=== PATIENT | female | born 2000 | race Caucasian/White ===

== ENCOUNTER → 2023-01-15 13:34 | Outpatient (CLI) | payer OTHER, SELFPAY ==
--- NOTE | 2023-01-15 13:36 | DI.US.S_ITS ---
PROCEDURE: US OB <= 14 WEEKS FETUS INDICATIONS: DATING AND VIABILITY OUTSIDE/PRIOR DATING DATA: Last menstrual period (LMP): 11/20/2022 LMP-based estimated date of delivery (NICK): 08/27/2023 First dating scan (date and location): 01/15/2023 Estimated date of delivery (NICK) from first dating scan: 09/03/2023 TECHNIQUE: Real-time scanning was performed of the fetus and maternal pelvic organs, with image documentation. Endovaginal scanning was also performed to better visualize the fetus and maternal ovaries. COMPARISON: None. FINDINGS: Embryo: Single intrauterine gestational sac is seen with fetus and yolk sac seen. [place]-rump length measures 0.9 cm. Estimated gestational age is 7 weeks, 0 day. Heart rate: 149 beats per minute. Small subchorionic hemorrhage adjacent to gestational sac is noted measures 0.8 x 0.7 x 0.7 cm in size. Maternal organs: Ovaries are visualized and are within normal limits. IMPRESSION: 1. Single live intrauterine gestation with fetus and yolk sac seen. heart rate is 149 beats per minute. Estimated gestational age based on current study is 7 weeks, 0 day. 2. Small subchorionic hematoma as above. Normal appearing bilateral ovaries. We strive to produce accurate, complete, and clear reports of imaging services. To assist us in improving patient care, this report was composed using standard report templates and voice recognition software. Therefore, it may contain abnormal punctuation, insertions and/or omissions. Occasional wrong-word or sound-alike substitutions may occur. Though we review the report and make efforts to correct it, we do recommend that the report be read carefully in proper context to recognize any text inaccuracies. Dictated by: Israel Haq M.D. on 01/15/2023 at 14:37 Approved by: Israel Haq M.D. on 01/15/2023 at 14:38
== END ==
PROVIDERS: Referring Provider Obstetrics & Gynecology; Visit Provider Obstetrics & Gynecology
DX: Z34.00 Encounter for supervision of normal first pregnancy, unspecified trimester (principal)
CPT/HCPCS: 76801; 76817

== ENCOUNTER → 2023-02-16 15:30 | Outpatient (CLI) | payer OTHER, SELFPAY ==
[2023-02-16 22:24] LABS: Urine N gonorrhoeae NOT DETECTED
[2023-02-16 22:28] LABS: Urine Chlamydia NOT DETECTED
== END ==
PROVIDERS: Visit Provider Obstetrics & Gynecology
DX: Z34.01 Encounter for supervision of normal first pregnancy, first trimester (principal); Z3A.12 12 weeks gestation of pregnancy
CPT/HCPCS: 87491; 87591

== ENCOUNTER → 2023-02-16 15:58 | Outpatient (CLI) | payer OTHER, SELFPAY ==
[2023-02-16 17:51] LABS: Add Manual Diff / Slide Review NO; Basophils Absolute Auto 0 /uL (0-100); Basophils Percent Auto 0.2 % (0-2); Eosinophils Absolute Auto 0 /uL (0-450); Eosinophils Percent Auto 0.4 % (2-4); Lymphocytes Absolute Auto 1500 /uL (1100-4500); Lymphocytes Percent Auto 21.5 % (25-40); Mean Corpuscular HGB Conc 36.1 % (30-36); Mean Corpuscular Hemoglobin 32.7 PG (26-34); Mean Corpuscular Volume 90.4 fL (80-100); Monocytes Absolute Auto 400 /uL (0-900); Monocytes Percent Auto 6.1 % (3-14); Neutrophils Absolute Auto 5000 /uL (1500-7000); Neutrophils Percent Auto 71.8 % (50-75); Platelet Count 243 X10^3/uL (150-400); Red Blood Cell Count 3.98 X10^6/uL (4.0-5.2); Red Cell Distribution Width 12.1 % (11.6-14.8)
[2023-02-18 09:15] LABS: Varicella IgG Antibody 302 index (Immune >165)
[2023-02-18 16:52] LABS: Hepatitis B Surface Antigen NEGATIVE s/c (NEGATIVE); Rubella Antibody IgG 74.9 IU/mL (>15)
[2023-02-18 17:26] LABS: HIV 1 & 2 Ab/Ag 4th Gen Combo NEGATIVE (NEGATIVE); Hep C Virus Ab w/Reflex Quant NEGATIVE s/c (NEGATIVE)
[2023-02-19 06:16] LABS: RPR Screen Non Reactive (Non Reactive)
== END ==
PROVIDERS: Referring Provider Obstetrics & Gynecology; Visit Provider Obstetrics & Gynecology
DX: Z34.01 Encounter for supervision of normal first pregnancy, first trimester (principal); Z3A.12 12 weeks gestation of pregnancy
CPT/HCPCS: 36415; 80055; 86787; 86803; 86850; 86900; 86901; 87389; 87491; 87591

== ENCOUNTER → 2023-03-16 11:59 | Outpatient (CLI) | payer OTHER, SELFPAY ==
[2023-03-18 22:42] LABS: AFP Value 26.8 ng/mL (.); Gest Age on Col Date 16.6 weeks (.); Insulin Dep Diabetes No (.); OSBR Risk 1IN 10000 (.); Results Report (.); Test Results *Screen Negative* (.)
== END ==
PROVIDERS: Referring Provider Obstetrics & Gynecology; Visit Provider Obstetrics & Gynecology
DX: Z34.02 Encounter for supervision of normal first pregnancy, second trimester (principal)
CPT/HCPCS: 36415; 82105

== ENCOUNTER → 2023-04-21 12:42 | Outpatient (CLI) | payer OTHER, SELFPAY ==
--- NOTE | 2023-04-21 12:46 | DI.US.S_ITS ---
PROCEDURE: US OB >= 14 WEEKS FETUS INDICATIONS: Anatomy Scan OUTSIDE/PRIOR DATING DATA: Last menstrual period (LMP): 11/20/22. LMP-based estimated date of delivery (NICK): 08/27/23. First dating scan (date and location): 01/15/23. Estimated date of delivery (NICK) from first dating scan: 09/03/23. The calculations are made using the working NICK of 08/27/23. TECHNIQUE: Real-time scanning was performed of the fetus, with image documentation and biometric measurements. Endovaginal scanning: No COMPARISON: None. FINDINGS: General: A single living intrauterine gestation is present. Presentation: Breech. Placenta: Placental position is anterior , without previa. Amniotic fluid index: 9.8 cm, normal range is 5-24 cm. Single deepest vertical pocket is 3.1 cm. heart rate: 143 beats per minute. Maternal cervical canal: Closed and 3.3 cm long. Normal lower limit is 2.5 cm. biometrics: Biparietal diameter: 4.5 cm, 19 weeks 4 days, 1st percentile Head circumference: 17.8 cm, 20 weeks 2 days, 2nd percentile Abdominal circumference: 15.4 cm, 20 weeks 4 days, 12 percentile Femur length: 3.4 cm, 20 weeks 5 days, 11th percentile Clinically estimated gestational age: 21 weeks 5 days Composite gestational age from present scan: 20 weeks 2 days Estimated weight and percentile: 361 g, 5th percentile Anatomic survey: Neuro: Ventricles are non-dilated at less than 10 mm. Cisterna magna is normal at 3-11 mm. Cerebellum is normal in size and morphology. Nuchal skin fold: Normal at less than 6 mm between 14-21 weeks gestational age. Face: Nose and lips, facial profile are normal. Spine: No evidence for spina bifida. Heart: 4-chambered heart is present, with normal ventricular outflow tracts. Diaphragm: Diaphragm is intact. Stomach: Left-sided stomach is present. Kidneys: There is left-sided hydronephrosis with the renal pelvis measuring 7.9 mm. The right renal pelvis is minimally prominent at 4.5 mm, less than 5 mm is normal in the 2nd trimester. No other visible cystic changes in the left renal fossa. No visible hydroureter. Cord: 3-vessel cord has orthotopic insertion. Bladder: Normal in size. Extremities: All 4 extremities identified. IMPRESSION: 1. Single living intrauterine with growth 10 days behind the expected gestational age. 2. Estimated weight is at the 5th percentile with specific biometric measurements at or below the 12th percentile. 3. Left renal hydronephrosis. Consider correlation with free cell DNA and follow-up in the early 3rd trimester. 4. Report alert called to the office of the ordering provider immediately following interpretation of the exam. We strive to produce accurate, complete, and clear reports of imaging services. To assist us in improving patient care, this report was composed using standard report templates and voice recognition software. Therefore, it may contain abnormal punctuation, insertions and/or omissions. Occasional wrong-word or sound-alike substitutions may occur. Though we review the report and make efforts to correct it, we do recommend that the report be read carefully in proper context to recognize any text inaccuracies. Dictated by: Gabby Novak M.D. on 04/21/2023 at 16:19 Approved by: Gabby Novak M.D. on 04/21/2023 at 16:32
== END ==
LOC: US 12:45
PROVIDERS: Referring Provider Obstetrics & Gynecology; Visit Provider Obstetrics & Gynecology
DX: Z34.82 Encounter for supervision of other normal pregnancy, second trimester (principal); Z3A.20 20 weeks gestation of pregnancy
CPT/HCPCS: 76811

== ENCOUNTER → 2023-06-03 16:07 | Outpatient (CLI) | payer OTHER, SELFPAY ==
[2023-06-03 19:00] LABS: Hematocrit 33.6 % (36-46); Hemoglobin 11.8 g/dL (12.0-16.0)
[2023-06-03 19:15] LABS: GTT (PREG) 1 Hour PP 50gm Dose 93 mg/dL (76-139)
== END ==
PROVIDERS: Referring Provider Obstetrics & Gynecology; Visit Provider Obstetrics & Gynecology
DX: Z34.02 Encounter for supervision of normal first pregnancy, second trimester (principal); Z3A.26 26 weeks gestation of pregnancy
CPT/HCPCS: 36415; 82950; 85014; 85018; 86850; 87086

== ENCOUNTER → 2023-07-08 15:27 | Outpatient (CLI) | payer OTHER, SELFPAY | PROVIDERS: Visit Provider Obstetrics & Gynecology | DX: R82.998 Other abnormal findings in urine (principal) | CPT/HCPCS: 87086 ==

== ENCOUNTER → 2023-07-19 12:45 | Outpatient (CLI) | payer OTHER, SELFPAY ==
--- NOTE | 2023-07-19 12:45 | DI.US.S_ITS ---
PROCEDURE: US OB FOLLOW UP INDICATIONS: hydronephrosis follow-up OUTSIDE/PRIOR DATING DATA: Last menstrual period (LMP): 11/20/2022 LMP-based estimated date of delivery (NICK): 08/27/2023 First dating scan (date and location): 01/15/2023 Estimated date of delivery (NICK) from first dating scan: 09/03/2023 The calculations are made using the ultrasound NICK of 09/03/2023 TECHNIQUE: Real-time scanning was performed of the fetus, with image documentation. Endovaginal scanning: Not performed. COMPARISON: [facility], , OB >= 14 WEEKS FETUS, 04/21/2023, 13:09. FINDINGS: General: A single living intrauterine gestation is present. Presentation: Vertex Placenta: Placental position is anterior, without previa. Amniotic fluid index: 8.1 cm, normal range is 5-24 cm. Single deepest vertical pocket is 3.7 cm. heart rate: 137 beats per minute. Maternal cervical canal: 3.9 cm long. Normal lower limit is 2.5 cm. Clinically estimated gestational age: 33 weeks 3 days Other: Right-sided pelviectasis has resolved, with the renal pelvis now measuring 1.6 mm in anterior-posterior diameter. Left pelviectasis has increased, with anterior-posterior diameter now measuring 10.7 mm, compared to 7.9 mm on ultrasound from 04/21/2023. IMPRESSION: 1. Single live intrauterine at 33 weeks 3 days gestation. 2. Persistent left pelviectasis. Recommend ultrasound. 3. No right pelviectasis. Approved by: Lobo Mora M.D. on 07/19/2023 at 20:55
== END ==
LOC: US 12:45
PROVIDERS: Referring Provider Obstetrics & Gynecology; Visit Provider Obstetrics & Gynecology
DX: O35.EXX0 Maternal care for other (suspected) fetal abnormality and damage, fetal genitourinary anomalies, not applicable or unspecified (principal); Z3A.33 33 weeks gestation of pregnancy
CPT/HCPCS: 76816

== ENCOUNTER → 2023-08-11 08:34 | Outpatient (CLI) | payer OTHER, SELFPAY ==
[2023-08-12 10:24] LABS: Strep Grp B PCR NEG for Grp B Strep
== END ==
PROVIDERS: Visit Provider Obstetrics & Gynecology
DX: Z34.83 Encounter for supervision of other normal pregnancy, third trimester (principal); Z3A.36 36 weeks gestation of pregnancy
CPT/HCPCS: 87653

== ENCOUNTER 2023-08-30 19:23 | Outpatient (CLI) | payer OTHER, SELFPAY | END 2023-08-30 20:10 | disposition home or self-care (01) | LOC: LABOR 19:48 → OB 09-01 10:31 | PROVIDERS: Referring Provider Student in an Organized Health Care Education/Training Program; Visit Provider Student in an Organized Health Care Education/Training Program | DX: O47.1 False labor at or after 37 completed weeks of gestation (principal); Z3A.39 39 weeks gestation of pregnancy | CPT/HCPCS: 59025; G0378; G0379 ==

== ENCOUNTER 2023-08-30 22:28 | Inpatient (IN) | payer OTHER, SELFPAY ==
[2023-08-30 22:59] LABS: Add Manual Diff / Slide Review NO; Basophils Absolute Auto 0 /uL (0-100); Basophils Percent Auto 0.4 % (0-2); Eosinophils Absolute Auto 0 /uL (0-450); Hematocrit 36.2 % (36-46); Hemoglobin 12.3 g/dL (12.0-16.0); Lymphocytes Absolute Auto 1600 /uL (1100-4500); Lymphocytes Percent Auto 14.8 % (25-40); Mean Corpuscular HGB Conc 33.9 % (30-36); Mean Corpuscular Hemoglobin 29.5 PG (26-34); Monocytes Absolute Auto 700 /uL (0-900); Monocytes Percent Auto 6.7 % (3-14); Neutrophils Absolute Auto 8600 /uL (1500-7000); Neutrophils Percent Auto 78.1 % (50-75); Platelet Count 215 X10^3/uL (150-400); Red Blood Cell Count 4.17 X10^6/uL (4.0-5.2); Red Cell Distribution Width 14.2 % (11.6-14.8)
[2023-08-30] MEDS: LACTATED RINGERS 1,000 ML 100 ML IV ×2 (23:00→23:56)
--- NOTE | 2023-08-31 00:39 | PM.AN.REGBLK ---
Regional Block Pre-procedure Procedure: Continuous Lumbar Epidural for L&D Attending OB provider: Sanjeev Noe PMH/ROS narrative: term uncomplicated , in active labor requesting labor epidural. Pt seen and examined, PSH/Anesthesia history narrative: neg Exam narrative: airway gr 2, lungs CTA, heart RRR w/o murmur ASA Class: II Labs: plts 215 Hct 36.2 % (36-46) 08/30/23 22:40 Plt Count 215 X10^3/uL (150-400) 08/30/23 22:40 Medications: Current Medications Generic Name Dose Route Start Last Admin Trade Name Freq PRN Reason Stop Dose Admin Butorphanol Tartrate 0.5 mg 08/31/23 00:45 Butorphanol 1 Mg/Ml Vial IV 09/01/23 00:46 Q30MIN DEANNE Carboprost Tromethamine 250 mcg 08/30/23 23:05 Carboprost 250 Mcg/Ml Ampul IM Q90M PRN Bleeding Diphenhydramine HCl 25 mg 08/31/23 00:45 Diphenhydramine 50 Mg/Ml Vial IV 09/01/23 00:46 Q30MIN DEANNE Diphenhydramine HCl 25 mg 08/31/23 00:37 Diphenhydramine 50 Mg/Ml Vial IV Q10M PRN Pruritis Ephedrine Sulfate 5 mg 08/31/23 00:37 Ephedrine 50 Mg/Ml Vial IV Q5M PRN Blood pressure decrease more than 20% of baseline. Fentanyl 50 mcg 08/30/23 23:05 Fentanyl 100 Mcg/2 Ml Inj IV Q1H PRN Pain, Moderate (4-6) Lactated Ringer's 1,000 mls @ 100 mls/hr 08/30/23 23:15 08/30/23 23:56 Lactated Ringers IV 100 mls/hr CONT DEANNE Administration Oxytocin/Lactated Ringer's 30 unit in 500 mls @ 200 mls/hr 08/30/23 23:05 Oxytocin Premix IV CONT PRN Bleeding Protocol Tranexamic Acid 1,000 mg/ 100 mls @ 200 mls/hr 08/30/23 23:05 Sodium Chloride IV NOW PRN Bleeding Sodium Chloride 1,000 mls @ 100 mls/hr 08/31/23 00:45 Normal Saline 0.9% IV 09/01/23 00:36 CONT DEANNE Lactated Ringer's 1,000 mls @ 1,000 mls/hr 08/31/23 00:37 Lactated Ringers IV 08/31/23 01:36 BOLUS ONE FENT 2MCG/ML BUPIV 0.125% EPI 200 mcg in 100 mls @ 6 mls/hr 08/31/23 00:45 Fentanyl/Bupiv/Ns 2mcg/Ml - 0.125% EPIDURAL CONT DEANNE Lidocaine HCl 20 ml 08/30/23 23:05 Lidocaine 1% 20 Ml INJ INTRA-OP PRN Post Delivery Methylergonovine Maleate 0.2 mg 08/30/23 23:05 Methylergonovine 0.2 Mg Tablet PO Q6HR PRN Heavy Bleeding Methylergonovine Maleate 0.2 mg 08/30/23 23:05 Methylergonovine 0.2 Mg/Ml Vial IM NOW PRN Bleeding Misoprostol 800 mcg 08/30/23 23:05 Misoprostol 200 Mcg Tablet KS NOW PRN Bleeding Misoprostol 400 mcg 08/30/23 23:05 Misoprostol 200 Mcg Tablet SL NOW PRN Bleeding Nalbuphine HCl 5 mg 08/31/23 00:35 Nalbuphine 20 Mg/Ml Ampul IV Q6H PRN Pruritus Nalbuphine HCl 2.5 mg 08/31/23 00:37 Nalbuphine 20 Mg/Ml Ampul IV Q10M PRN Pruritis Naloxone HCl 0.2 mg 08/30/23 23:05 Naloxone 0.4 Mg/Ml Vial IV Q2MIN PRN Opiate Reversal Naloxone HCl 0.4 mg 08/31/23 00:35 Naloxone 0.4 Mg/Ml Vial IV Q2MIN PRN Opiate Reversal Naloxone HCl 0.1 mg 08/31/23 00:35 Naloxone 0.4 Mg/Ml Vial IV 08/31/23 00:36 NOW ONE Naloxone HCl 0.1 mg 08/31/23 00:35 Naloxone 0.4 Mg/Ml Vial IV 08/31/23 00:36 NOW ONE Ondansetron HCl 4 mg 08/30/23 23:05 Ondansetron 4 Mg/2 Ml Inj IV Q4HR PRN Nausea And Vomiting Ondansetron HCl 4 mg 08/31/23 01:00 Ondansetron 4 Mg/2 Ml Inj IV 08/31/23 05:01 Q4HR [facility] Oxytocin 10 unit 08/30/23 23:05 Oxytocin 10 Unit/Ml Vial IM NOW PRN Bleeding Sodium Chloride 10 ml 08/31/23 09:00 Sodium Chloride 0.9% Flush IV BID DEANNE Sodium Chloride 10 ml 08/30/23 23:05 Sodium Chloride 0.9% Flush IV PRN PRN Flush Sodium Chloride 10 ml 08/31/23 09:00 Sodium Chloride 0.9% Flush IV BID DEANNE Sodium Chloride 10 ml 08/31/23 00:37 Sodium Chloride 0.9% Flush IV PRN PRN Flush Allergies: Allergies Allergy/AdvReac Type Severity Reaction Status Date / Time No Known Drug Allergies Allergy Unverified 08/25/23 13:55 Procedure Insertion date: 08/31/23 Insertion time: 00:07 Prep/Local: betadine x3 (chloroprep) and 1% lidocaine Interspace: L3-4 Patient position: lateral (LLD) Needle: 17 gauge Tuohy Loss of resistance with: saline JOHN at (cm): 7 Catheter placed at SKIN (cm): 14 Catheter in SPACE (cm): 7 Sensory level: T4 Insertion: No CSF, No Blood, Yes Paresthesia with insertion, No Paresthesia with injection and No Test dose reaction Initial Medications TEST DOSE time: 00:15 BOLUS DOSE time: 00:19 BOLUS DOSE (mL): 10 BOLUS DOSE med: 0.125% bupivacaine with fentanyl 10 mcg/mL Infusion Initial rate (mL/hr): 10 Subsequent interventions: initial epidural placed with pt sitting, then lying LLD, 17 g touhy, after chloroprep, JOHN saline at 7 cm. Cath passed EZ, taped at 12 cm. Test dose 2341, bolus 10 ml infusion solution 2344, no relief. T 10 temp change. Bolus 10 ml 0.25% marcaine, no relief. Cathetr d/c'd, tip intact, 0003. Very tight interspaces! 0028 baby with decels, SBP 105/53. 10 mg ephedrine give, BP 128/60 0100 Called to bedside. Pt c/o difficulty swallowing. Unable to move legs. BP good. Infusion turned off. Able to draw free clear fluid thru catheter. Epidural infusion disconnected from pt. Dr Brown called to replace epidural. 0145, Dr Brown here. Catheter d/c'd, tip intact. Pt legs still numb. Will wait until block recedes further to replace catheter. Post-procedure Anesthesia date START: 08/30/23 Anesthesia time START: : Anesthesia date END: 08/31/23 Anesthesia time END: 01:45 Post-procedure Anesthesia Assessment: Yes CV function: HR/BP stable, Yes Resp function: RR/sat/airway adequate, Yes Post-op hydration adequate, Yes Pain control adequate, Yes Nausea & vomiting absent, Yes Temperature > 36 C, Yes Mental status appropriate and Yes Anesthesia complications (intrathecal catheter)
[2023-08-31 02:37] VITALS: BP 136/67
--- NOTE | 2023-08-31 03:42 | P.PCN_ITS ---
Regional Block Pre-procedure Procedure: Continuous Lumbar Epidural for L&D Attending OB provider: Bindu Watts PMH/ROS narrative: 23yo in labor. Prior epidural catheter placed by Dr. Granda but noted to be intrathecal. Catheter removed at 01:44, and waited for pt to regain sensation and strength in BLE before placing new catheter. Pt is now feeling tightening with contractions and able to sit upright and move BLE against gravity. ASA Class: II Labs: Hct 36.2 % (36-46) 08/30/23 22:40 Plt Count 215 X10^3/uL (150-400) 08/30/23 22:40 Medications: Current Medications Generic Name Dose Route Start Last Admin Trade Name Freq PRN Reason Stop Dose Admin Butorphanol Tartrate 0.5 mg 08/31/23 00:45 Butorphanol 1 Mg/Ml Vial IV 09/01/23 00:46 Q30MIN DEANNE Carboprost Tromethamine 250 mcg 08/30/23 23:05 Carboprost 250 Mcg/Ml Ampul IM Q90M PRN Bleeding Diphenhydramine HCl 25 mg 08/31/23 00:45 Diphenhydramine 50 Mg/Ml Vial IV 09/01/23 00:46 Q30MIN DEANNE Diphenhydramine HCl 25 mg 08/31/23 00:37 Diphenhydramine 50 Mg/Ml Vial IV Q10M PRN Pruritis Ephedrine Sulfate 5 mg 08/31/23 00:37 Ephedrine 50 Mg/Ml Vial IV Q5M PRN Blood pressure decrease more than 20% of baseline. Fentanyl 50 mcg 08/30/23 23:05 Fentanyl 100 Mcg/2 Ml Inj IV Q1H PRN Pain, Moderate (4-6) Lactated Ringer's 1,000 mls @ 100 mls/hr 08/30/23 23:15 08/30/23 23:56 Lactated Ringers IV 100 mls/hr CONT DEANNE Administration Oxytocin/Lactated Ringer's 30 unit in 500 mls @ 200 mls/hr 08/30/23 23:05 Oxytocin Premix IV CONT PRN Bleeding Protocol Tranexamic Acid 1,000 mg/ 100 mls @ 200 mls/hr 08/30/23 23:05 Sodium Chloride IV NOW PRN Bleeding Sodium Chloride 1,000 mls @ 100 mls/hr 08/31/23 00:45 Normal Saline 0.9% IV 09/01/23 00:36 CONT DEANNE FENT 2MCG/ML BUPIV 0.125% EPI 200 mcg in 100 mls @ 6 mls/hr 08/31/23 00:45 Fentanyl/Bupiv/Ns 2mcg/Ml - 0.125% EPIDURAL CONT DEANNE Lidocaine HCl 20 ml 08/30/23 23:05 Lidocaine 1% 20 Ml INJ INTRA-OP PRN Post Delivery Methylergonovine Maleate 0.2 mg 08/30/23 23:05 Methylergonovine 0.2 Mg Tablet PO Q6HR PRN Heavy Bleeding Methylergonovine Maleate 0.2 mg 08/30/23 23:05 Methylergonovine 0.2 Mg/Ml Vial IM NOW PRN Bleeding Misoprostol 800 mcg 08/30/23 23:05 Misoprostol 200 Mcg Tablet LA NOW PRN Bleeding Misoprostol 400 mcg 08/30/23 23:05 Misoprostol 200 Mcg Tablet SL NOW PRN Bleeding Nalbuphine HCl 5 mg 08/31/23 00:35 Nalbuphine 20 Mg/Ml Ampul IV Q6H PRN Pruritus Nalbuphine HCl 2.5 mg 08/31/23 00:37 Nalbuphine 20 Mg/Ml Ampul IV Q10M PRN Pruritis Naloxone HCl 0.2 mg 08/30/23 23:05 Naloxone 0.4 Mg/Ml Vial IV Q2MIN PRN Opiate Reversal Naloxone HCl 0.4 mg 08/31/23 00:35 Naloxone 0.4 Mg/Ml Vial IV Q2MIN PRN Opiate Reversal Ondansetron HCl 4 mg 08/30/23 23:05 Ondansetron 4 Mg/2 Ml Inj IV Q4HR PRN Nausea And Vomiting Ondansetron HCl 4 mg 08/31/23 01:00 Ondansetron 4 Mg/2 Ml Inj IV 08/31/23 05:01 Q4HR DEANNE Oxytocin 10 unit 08/30/23 23:05 Oxytocin 10 Unit/Ml Vial IM NOW PRN Bleeding Sodium Chloride 10 ml 08/31/23 09:00 Sodium Chloride 0.9% Flush IV BID DEANNE Sodium Chloride 10 ml 08/30/23 23:05 Sodium Chloride 0.9% Flush IV PRN PRN Flush Sodium Chloride 10 ml 08/31/23 09:00 Sodium Chloride 0.9% Flush IV BID DEANNE Sodium Chloride 10 ml 08/31/23 00:37 Sodium Chloride 0.9% Flush IV PRN PRN Flush Allergies: Allergies Allergy/AdvReac Type Severity Reaction Status Date / Time No Known Drug Allergies Allergy Unverified 08/25/23 13:55 Procedure Insertion date: 08/31/23 Insertion time: 03:25 Prep/Local: 1% lidocaine (Chloraprep) Interspace: Two attempts. First at L3-4, unable to get past bone. Second at L2- 3. Patient position: sitting Needle: 18 gauge [place] Loss of resistance with: saline JOHN at (cm): 6 Catheter placed at SKIN (cm): 13 Catheter in SPACE (cm): 7 Insertion: No CSF, No Blood, No Paresthesia with insertion, No Paresthesia with injection and No Test dose reaction Initial Medications TEST DOSE time: 03:26 TEST DOSE: 1.5% lidocaine with epinephrine 1:200k (mL): 3 BOLUS DOSE time: 03:27 BOLUS DOSE (mL): 2 BOLUS DOSE med: other (Same as test dose) Infusion INFUSION: 0.125% bupivacaine and with fentanyl 2 mcg/mL Initial rate (mL/hr): 8 Subsequent interventions: Pt checked by RN and 8 cm. Remains comfortable after epidural placement and able to move BLE. No changes made. Post-procedure Anesthesia date START: 08/31/23 Anesthesia time START: 03:10 Anesthesia date END: 08/31/23 Anesthesia time END: 07:46 Post-procedure Anesthesia Assessment: Yes CV function: HR/BP stable, Yes Resp function: RR/sat/airway adequate, Yes Post-op hydration adequate, Yes Pain control adequate, Yes Nausea & vomiting absent, Yes Temperature > 36 C, Yes Mental status appropriate and Yes Anesthesia complications (First epidural last night--intrathecal catheter. Monitoring for PDPH.)
--- NOTE | 2023-08-31 03:54 | P.HPOB_ITS ---
OB HPI Date/Time Date of admission: 08/31/23 Date Patient Seen: 08/31/23 Time Patient Seen: 03:54 History of Present Condition Chief complaint: labor NICK Calculator 2 Estimated Delivery Date Method Current WG Current Estimate 09/03/23 Ultrasound #1 39w 4d Other Estimates 08/27/23 LMP (Certain) 40w 4d Estimated Gestational Age (weeks): 39+4 : 1 Para: 0 care: good care, initiated at week # (11), number of visits (11) and pounds weight gain (41) Dating criteria OB: based on 1st trimester US only Ultrasounds: normal 1st trimester US and normal mid trimester US Obstetrical complications: none Medical complications OB: none Preadmission Labs Last OB Lab Results: 2 Blood Type O Negative 08/30/23 22:40 Antibody Screen Negative 08/30/23 22:40 Hematocrit 36.2 % (36-46) 08/30/23 22:40 Hemoglobin 12.3 g/dL (12.0-16.0) 08/30/23 22:40 Hepatitis B Surface Antigen Negative s/c (NEGATIVE) 02/16/23 16 :11 Hepatitis C Antibody Negative s/c (NEGATIVE) 02/16/23 16:11 Rubella Antibody 74.9 IU/mL (>15) 02/16/23 16:11 Varicella-Zoster IgG Antibody 302 index (Immune >165) 02/16/23 16:11 Glucose 1 Hour 93 mg/dL (76-139) 06/03/23 16:22 Group B Streptococcus (PCR) Neg for grp b strep 08/11/23 08:34 -: Chlamydia screen: negative, Gonorrhea screen: negative and Urine: negative Genetic Screens: Cell-free DNA: Normal (normal female) and Alpha-fetoprotein: Normal External Labs -: Urine: negative Evaluation Evaluation Baseline heart rate: 135 Variability: Moderate (11-25) monitor accelerations: Present Contraction Frequency (minutes): 3 Uterine Contraction Intensity: Strong/Firm Dilation (cm): 8 Effacement (%): 100 station: +1 Position of cervix: anterior Consistency: soft PFSH Surgical History (Updated 01/21/23 @ 09:24 by Erica Powers RN) Hx of tonsillectomy (~11/19/22) [place] teeth extracted H/O skin graft Family History (Updated 01/21/23 @ 09:07 by Erica Powers RN) Father Family estrangement Social History marital status: number of children: 0 household members: other (roommates) lives independently: Yes caregiver/support person: No housing: 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 ) special pedro luis needs: No travel history: over 6 months ago seatbelt use: always water heater temp set < 120 deg: Yes working smoke detector in home: Yes fire extinguisher in home: Yes carbon monox detector in home: Yes firearms in home: No do you feel safe at home: Yes Smoking Status: Former smoker Tobacco: How many years used: 1 second hand exposure: No alcohol intake: former (minimal prior to ) substance use type: does not use during the past year weight has: remained stable well-balanced diet: about half the time daily servings fruits/ve-4 caffeine: Yes (aware of 200mg limit) Type(s) of exercise: weight lifting and resistance training Meds Home Medications and Allergies Home Medications Medication Instructions Recorded Confirmed Type vit no.95-ferrous 1 tab PO DAILY 01/21/23 08/25/23 History fumarate 28 mg-folic acid 800 mcg tablet ( Multivitamins) breast pump #1 ea 07/08/23 08/25/23 Rx Allergies Allergy/AdvReac Type Severity Reaction Status Date / Time No Known Drug Allergies Allergy Unverified 08/25/23 13:55 OB Exam Narrative Exam Narrative: Generally: Patient is sitting up on edge of bed for epidural, tolerating contractions fairly well Lungs: Clear to auscultation bilaterally Cardiovascular: Regular rate and rhythm Fundal height: 39 cm Estimated weight: 7-1/2 lb Extremities: Trace edema Objective Labs 08/30/23 22:40 Labs: Laboratory Results - last 24 hr 08/30/23 22:40 WBC 11.0 RBC 4.17 Hgb 12.3 Hct 36.2 MCV 87.0 MCH 29.5 MCHC 33.9 RDW 14.2 Plt Count 215 Neut % (Auto) 78.1 H Lymph % (Auto) 14.8 L [place] % (Auto) 6.7 Eos % (Auto) 0.0 L Baso % (Auto) 0.4 Neut # (Auto) 8600 H Lymph # (Auto) 1600 [place] # (Auto) 700 Eos # (Auto) 0 Baso # (Auto) 0 Blood Type O Negative Antibody Screen Positive Assessment and Plan Assessment and Plan Assessment and Plan narrative: Assessment: 23-year-old 1 para 0 at 39-,4/7 weeks gestation status post spontaneous rupture of membranes with clear fluid GBS negative Epidural in place Plan: Expected management to spontaneous vaginal delivery Time Spent with Patient Total time spent with greater than 50% in coordination of care (as documented) at patient's floor/unit and/or counseling patient:: 15-24 minutes
[2023-08-31] MEDS: FENT 2MCG/ML BUPIV 0.125% EPI 200 MCG/100 ML PLAST..BAG 6 MCG EPIDURAL (07:25)
[2023-08-31] MEDS: LIDOCAINE 1% 20 ML INJ (07:55)
--- NOTE | 2023-08-31 08:20 | P.PCNOB_ITS ---
Labor & Delivery Delivery date: 08/31/23 Intrapartal Events: None Cervical ripening method: none Induction method: none Delivery monitor: external FHT and external uterine Route of delivery: Episiotomy description: None L&D Laceration Description: Periurethral - 1st Degree and Perineal - 1st Degree Delivery repair: chromic Estimated blood loss (mL): 175 Anesthesia Type: Epidural Complications: None Narrative: Following a 45 minute 2nd stage, the patient delivered spontaneously over an intact perineum a viable female with Apgars of 9/9, weight of 3109 g (6 lb 13.7 oz). A single nuchal cord was noted and reduced prior to delivery of the shoulders. No shoulder dystocia was encountered. Skin to skin contact was initiated immediately and delayed cord clamping performed. Once the umbilical cord had been doubly clamped and cut, a cord blood sample was obtained for routine studies. The placenta was then delivered with gentle cord traction and suprapubic countertraction. Inspection of the placenta revealed it to be intact with a centrally inserting three-vessel cord. Intravenous Pitocin was initiated immediately upon delivery of the placenta and post losses were quickly minimized. Inspection of the perineum showed superficial periurethral lacerations as well as a superficial first-degree perineal laceration. The perineum Col[place] laceration was closed with 3-0 chromic and the right-sided periurethral laceration was closed in a similar manner under epidural anesthesia. Sponge, instrument, and needle counts were correct at the end of the delivery process which was well tolerated by both mother and infant. [place] Baby 1: gender: Female Presentation: vertex Position: Left Occiput Anterior Placenta delivery description: Spontaneous Cord Vessel Description: 3 Vessels score (1 min): 9 score (5 min): 9 weight: 6 lb 13.667 oz Plan for aftercare: Routine care
[2023-08-31] MEDS: ONDANSETRON 4 MG/2 ML INJ IV (09:08)
[2023-08-31] MEDS: ACETAMINOPHEN 325 MG TABLET 650 MG PO ×3 (10:44→22:25)
[2023-08-31] MEDS: IBUPROFEN 600 MG TABLET PO ×3 (10:44→22:25)
[2023-08-31] MEDS: LANOLIN OINT 7 GM 1 APPLIC TOP (10:45)
[2023-08-31] MEDS: diphenhydrAMINE 25 MG TABLET PO ×2 (17:49→21:45)
[2023-08-31] MEDS: DOCUSATE 100 MG CAPSULE PO (21:45)
[2023-09-01] MEDS: ACETAMINOPHEN 325 MG TABLET 650 MG PO (05:23)
[2023-09-01] MEDS: IBUPROFEN 600 MG TABLET PO (05:23)
[2023-09-01 06:19] LABS: Add Manual Diff / Slide Review NO; Basophils Absolute Auto 0 /uL (0-100); Basophils Percent Auto 0.2 % (0-2); Eosinophils Absolute Auto 0 /uL (0-450); Eosinophils Percent Auto 0.1 % (2-4); Hemoglobin 10.8 g/dL (12.0-16.0); Lymphocytes Absolute Auto 2000 /uL (1100-4500); Lymphocytes Percent Auto 18.7 % (25-40); Mean Corpuscular HGB Conc 33.9 % (30-36); Mean Corpuscular Volume 88.5 fL (80-100); Monocytes Absolute Auto 800 /uL (0-900); Monocytes Percent Auto 7.7 % (3-14); Neutrophils Absolute Auto 7900 /uL (1500-7000); Neutrophils Percent Auto 73.3 % (50-75); Platelet Count 162 X10^3/uL (150-400); Red Blood Cell Count 3.61 X10^6/uL (4.0-5.2); Red Cell Distribution Width 14.3 % (11.6-14.8); White Blood Cell Count 10.8 X10^3/uL (4.5-11.0)
--- NOTE | 2023-09-01 08:25 | P.DS_ITS ---
Discharge Providers Provider Date of admission: 08/30/23 22:28 Discharge Date: 09/01/23 Primary care physician: Sanjeev Noe MD Consults: 08/30/23 23:05 Consult to Anesthesiology Urgent Comment: Consulting Provider: Anesthesiologist Reason for consultation: Epidural 09/01/23 08:17 Consult to Team [employer] Sales Associate Routine Comment: Discharge provider: Jessenia Garcia MD Summary Hospital Course Date Patient Seen: 09/01/23 Time Patient Seen: 08:25 Diagnoses: term labor Hospital Course: 23yo G1 admitted to [facility] at 39w4d in advanced term labor following SROM clear fluid prior to arrival. Cat 1 tracing/maternal VSS/afebrile on admission. Pt had epidural placed per anesthesia for neuraxial analgesia that was complicated by initially unrecognized intrathecal placement. Pt experienced temporary paralysis of her upper extremities as well as difficulty with swallowing that spontaneously resolved following removal of the aberrantly placed catheter. Pt had an uncomplicated second stage with delivery of LBFI, spontaneous delivery of placenta without uncomplication. First degree perineal and periurethral lacerations were repaired in typical fashion. Intrapartum course was reviewed with patient and her partner by Drs. Noe and Kevin secondary to intrathecal catheter at time of first epidural placement, in shared decision making model pt declined prophylactic blood patch and desired expectant management/observation for post-procedural LAU or complication. Patient had a subsequently uncomplicated course and was meeting all discharge milestones on PPD1. exclusively, rubella immune, 1h OGTT wnl, declined immediate contraception. Risk of escape ovulation reviewed with recommendation for barrier protection with all intimacy. Peripartum Data Infant Delivery Method: Natural Vaginal Laceration Description: Periurethral - 1st Degree and Perineal - 1st Degree Episiotomy description: None complications: none [place] 1: Gender: Female Disposition of : home Discharge Diagnosis (1) Vaginal delivery: Start Date: 09/01/23 Start Time: 12:00 Status: Acute Status at Discharge Cognitive/behavioral status at discharge: oriented Functional status at discharge: independent ambulation Overall status at discharge: patient is back to baseline Time Spent with Patient Time attestation: Total time spent providing and/or coordinating discharge services: Time spent: Less than 30 minutes Objective Labs 09/01/23 05:50 Labs: Laboratory Results - last 24 hr 08/30/23 09/01/23 22:40 05:50 WBC 10.8 RBC 3.61 L Hgb 10.8 L Hct 32.0 L MCV 88.5 MCH 30.0 MCHC 33.9 RDW 14.3 Plt Count 162 Neut % (Auto) 73.3 Lymph % (Auto) 18.7 L Anson % (Auto) 7.7 Eos % (Auto) 0.1 L Baso % (Auto) 0.2 Neut # (Auto) 7900 H Lymph # (Auto) 2000 Anson # (Auto) 800 Eos # (Auto) 0 Baso # (Auto) 0 Antibody Screen Negative Antibody Identification Cancelled Maternal Bleed Negative Exam Vital Signs (past 8 hours): Maternal VSS/afebrile as per review of OBIX documentation Narrative Exam Narrative: sleeping, easily aroused Const General: cooperative, healthy appearing and comfortable Nutritional Appearance: average body habitus Orientation: alert and awake Limitations: mental status not altered HENMT Head: normal to inspection Mouth: moist mucous membranes Neck Neck: normal visual inspection Resp Effort & Inspection: normal respiratory effort Cardio Pulses: normal peripheral pulses GI Inspection: normal to inspection Palpation: soft Other: fundus firm 3 below U, non-tender Other: exam deferred per shared decision making with patient Skin General: no rashes or lesions noted Neuro General: patient alert, patient awake and patient oriented x3 Extrem General: normal to inspection Psych Appearance: grossly normal Mental Status: mental status grossly normal Speech and Movement: speech and movement normal Judgment: judgment good Discharge Plan Discharge Plan Patient Disposition: Home Discharge orders & Medications Prescriptions: New acetaminophen 325 mg Tablet 650 mg PO Q6HR PRN (Reason: Pain, Mild (1-3)) Qty: 30 0RF ibuprofen 600 mg Tablet 600 mg PO Q6HR PRN (Reason: Pain, Mild (1-3)) Qty: 30 0RF Continued (DME) breast pump Device See Rx Instructions .Route Qty: 1 0RF Rx Instructions: As directed - [employer] PNV cmb#95-ferrous fumarate-FA [ Multivitamins] 28 mg iron- 800 mcg tablet 1 tab PO DAILY Follow up/Referrals: Sanjeev Noe MD [Primary Care Provider] - (6 week Appt w/ Dr. Noe: October 04 @ 1:30pm) Visit Report/Discharge Packet Stand Alone Forms: Discharge: Care, Patient Portal/API, Stroke Signs & Symptoms Discharge Data Primary Care Provider: Sanjeev Noe
[2023-09-01] MEDS: RHO(D) IMMUNE GLOBULIN 1,500 UNIT SYRINGE 1500 UNIT IM (10:16)
[2023-09-01 10:28] VITALS: BP 111/62; PULSE 65; RESP 15; TEMP 37.1
== END 2023-09-01 10:45 | disposition home or self-care (01) | DRG 806 ==
PROVIDERS: Admitting Provider Obstetrics & Gynecology; PCP Obstetrics & Gynecology; Referring Provider Obstetrics & Gynecology; Visit Provider Obstetrics & Gynecology
DX: O70.0 First degree perineal laceration during delivery (principal); O47.1 False labor at or after 37 completed weeks of gestation; Z37.0 Single live birth; Z3A.39 39 weeks gestation of pregnancy
CPT/HCPCS: 36415; 59025; 59050; 85025; 85461; 86850; 86870; 86900; 86901; G0379; J2274; J2405; J2790